=== PATIENT | female | born 1950 | race Caucasian/White ===

== ENCOUNTER 2020-01-24 15:44 | Inpatient (IN) | payer OTHER ==
[2020-01-24 15:54] VITALS: BMI 27.3
[2020-01-24] MEDS ORDERED: ACETAMINOPHEN 1000 MG/100 ML VIAL (NON FORMULARY) IVPB ONE (16:29)
[2020-01-24] MEDS ORDERED: ACETAMINOPHEN INJECTION 100 ML IVPB ONE (18:47)
[2020-01-24 18:58] LABS: MEAN PLT VOLUME 8.8 fl (7.5-11.1)
[2020-01-24 19:03] LABS: HEMATOCRIT 47.4 % (32.4-45.2); HEMOGLOBIN 16.2 GM/dl (10.7-15.3); MCH 31.6 pg (25.7-33.7); MCHC 34.2 g/dl (32.0-36.0); MEAN CELL VOLUME 92.4 fl (80-96); PLATELET COUNT 270 K/MM3 (134-434); RBC 5.13 M/mm3 (3.60-5.2); RDW 12.1 % (11.6-15.6); WHITE BLOOD COUNT 22.6 K/mm3 (4.0-10.8)
[2020-01-24 19:16] LABS: ACTIVATED PTT 31.9 SECONDS (25.2-36.5)
[2020-01-24 19:19] LABS: ALBUMIN 4.3 g/dl (3.4-5.0); BILIRUBIN,TOTAL 0.9 mg/dl (0.2-1); CALCIUM 9.5 mg/dl (8.5-10); CREATININE 1.1 mg/dl (0.55-1.3); POTASSIUM 3.7 mmol/L (3.5-5.1); TOT PROT 7.5 g/dl (6.4-8.2)
[2020-01-24 19:21] LABS: INR 1.14 (0.82-1.09); PROTHROMBIN TIME (PATIENT) 12.7 SEC (10.2-13.0)
[2020-01-24 19:38] LABS: PLATELET ESTIMATE ADEQUATE
[2020-01-24] MEDS: ACETAMINOPHEN 1000 MG/100 ML VIAL (NON FORMULARY) IVPB PRN (23:12)
[2020-01-25] MEDS ORDERED: LACTATED RINGERS SOLUTION 1,000 ML/1,000 ML INFUS.BAG IV SCH (01:00)
[2020-01-25] MEDS: ACETAMINOPHEN 1000 MG/100 ML VIAL (NON FORMULARY) IVPB PRN (05:58)
[2020-01-25 08:09] LABS: ALBUMIN 3.8 g/dl (3.4-5.0); BILIRUBIN,TOTAL 1.3 mg/dl (0.2-1); CALCIUM 9.4 mg/dl (8.5-10); CREATININE 0.9 mg/dl (0.55-1.3); MAGNESIUM 2.2 mg/dL (1.8-2.4); POTASSIUM 3.6 mmol/L (3.5-5.1); TOT PROT 6.9 g/dl (6.4-8.2)
[2020-01-25 08:16] LABS: HEMATOCRIT 43.3 % (32.4-45.2); HEMOGLOBIN 14.9 GM/dl (10.7-15.3); MCH 31.5 pg (25.7-33.7); MCHC 34.4 g/dl (32.0-36.0); MEAN CELL VOLUME 91.5 fl (80-96); MEAN PLT VOLUME 8.8 fl (7.5-11.1); PLATELET COUNT 231 K/MM3 (134-434); RBC 4.73 M/mm3 (3.60-5.2); WHITE BLOOD COUNT 13.8 K/mm3 (4.0-10.8)
[2020-01-25] MEDS ORDERED: VANCOMYCIN 1,000 MG VIAL (RESTRICTED TO ID ONLY) ONE (09:58)
[2020-01-25] MEDS ORDERED: MIDAZOLAM HCL 2 MG/2 ML SINGLE DOSE VIAL ONE ×2 (09:58)
[2020-01-25] MEDS ORDERED: PROPOFOL 20 ML ONE ×2 (10:50→11:51)
[2020-01-25] MEDS ORDERED: ceFAZolin SODIUM 1 GM VIAL IVPB ONE (11:08)
[2020-01-25] MEDS ORDERED: VANCOMYCIN 1,000 MG VIAL (RESTRICTED TO ID ONLY) IVPB ONE (11:20)
[2020-01-25] MEDS ORDERED: LACTATED RINGERS SOLUTION 1,000 ML IV SCH (12:45)
[2020-01-25] MEDS ORDERED: ACETAMINOPHEN 1000 MG/100 ML VIAL (NON FORMULARY) IVPB PRN (13:07)
[2020-01-25] MEDS ORDERED: ONDANSETRON 4 MG/2 ML VIAL IVPUSH PRN (13:42)
[2020-01-25] MEDS: LACTATED RINGERS SOLUTION 1,000 ML IV SCH ×2 (17:05→21:17)
[2020-01-25] MEDS ORDERED: CEFAZOLIN 2 GM/D5W 2 GM/50 ML ML IVPB SCH (20:00)
[2020-01-25] MEDS: CEFAZOLIN 2 GM/D5W 2 GM/50 ML ML IVPB SCH (21:16)
[2020-01-26] MEDS: CEFAZOLIN 2 GM/D5W 2 GM/50 ML ML IVPB SCH (04:24)
[2020-01-26] MEDS ORDERED: ASPIRIN 325 MG TABLET PO SCH (08:00)
[2020-01-26 08:38] LABS: HEMATOCRIT 41.1 % (32.4-45.2); HEMOGLOBIN 13.9 GM/dL (10.7-15.3); MCHC 33.7 g/dl (32.0-36.0); MEAN CELL VOLUME 91.9 fl (80-96); MEAN PLT VOLUME 8.7 fl (7.5-11.1); PLATELET COUNT 200 K/MM3 (134-434); RBC 4.47 M/mm3 (3.60-5.2); RDW 13.1 % (11.6-15.6); WHITE BLOOD COUNT 15.8 K/mm3 (4.0-10.0)
[2020-01-26 08:55] LABS: POTASSIUM 3.6 mmol/L (3.5-5.1)
[2020-01-26 08:57] LABS: CALCIUM 8.6 mg/dL (8.5-10.1)
[2020-01-26 08:58] LABS: BLOOD UREA NITROGEN 10.9 mg/dL (7-18)
[2020-01-26 09:01] LABS: CREATININE 0.9 mg/dL (0.55-1.3)
[2020-01-26] MEDS: ASPIRIN 325 MG TABLET PO SCH (09:37)
[2020-01-26] MEDS: ACETAMINOPHEN 325 MG TABLET (FP) PO PRN (12:49)
[2020-01-26] MEDS ORDERED: traMADol HCL 50 MG TABLET PO PRN (15:41)
[2020-01-27 08:48] LABS: BASO % 0.2 % (0-2.0); EOS % 0.3 % (0-4.5); HEMATOCRIT 40.6 % (32.4-45.2); HEMOGLOBIN 13.7 GM/dL (10.7-15.3); LYMPH % 9.3 % (8-40); MCH 30.7 pg (25.7-33.7); MCHC 33.7 g/dl (32.0-36.0); MEAN CELL VOLUME 91.1 fl (80-96); MEAN PLT VOLUME 8.4 fl (7.5-11.1); MONO % 11.7 % (3.8-10.2); NEUT % 78.5 % (42.8-82.8); PLATELET COUNT 232 K/MM3 (134-434); RBC 4.46 M/mm3 (3.60-5.2); RDW 12.8 % (11.6-15.6); WHITE BLOOD COUNT 17.8 K/mm3 (4.0-10.0)
[2020-01-27] MEDS: ENOXAPARIN NA (PORCINE) 40 MG/0.4 ML DISP.SYRIN SQ SCH (09:03)
[2020-01-27] MEDS: ASPIRIN 325 MG TABLET PO SCH ×2 (09:06→10:11)
[2020-01-27 09:08] LABS: POTASSIUM 3.6 mmol/L (3.5-5.1)
[2020-01-27 09:10] LABS: CALCIUM 8.9 mg/dL (8.5-10.1)
[2020-01-27 09:11] LABS: BLOOD UREA NITROGEN 11.5 mg/dL (7-18)
[2020-01-27 09:14] LABS: CREATININE 0.8 mg/dL (0.55-1.3)
[2020-01-27] MEDS ORDERED: DOCUSATE SODIUM 100 MG CAPSULE (FP) PO ONE (11:50)
[2020-01-27] MEDS ORDERED: BISACODYL 5 MG TABLET.DR (FP) PO ONE (12:15)
[2020-01-28] MEDS: ACETAMINOPHEN 325 MG TABLET (FP) PO PRN (02:02)
[2020-01-28 09:07] LABS: BASO % 0.1 % (0-2.0); EOS % 1.1 % (0-4.5); HEMATOCRIT 37.9 % (32.4-45.2); HEMOGLOBIN 12.8 GM/dL (10.7-15.3); MCH 30.8 pg (25.7-33.7); MCHC 33.9 g/dl (32.0-36.0); MEAN CELL VOLUME 91.1 fl (80-96); MEAN PLT VOLUME 8.5 fl (7.5-11.1); MONO % 11.5 % (3.8-10.2); NEUT % 71.3 % (42.8-82.8); PLATELET COUNT 230 K/MM3 (134-434); RBC 4.16 M/mm3 (3.60-5.2); RDW 12.7 % (11.6-15.6); WHITE BLOOD COUNT 14.3 K/mm3 (4.0-10.0)
[2020-01-28] MEDS: ASPIRIN 325 MG TABLET PO SCH (09:11)
[2020-01-28] MEDS: ENOXAPARIN NA (PORCINE) 40 MG/0.4 ML DISP.SYRIN SQ SCH (09:11)
[2020-01-28 09:40] LABS: POTASSIUM 3.5 mmol/L (3.5-5.1)
[2020-01-28 09:42] LABS: CALCIUM 8.5 mg/dL (8.5-10.1)
[2020-01-28 09:43] LABS: BLOOD UREA NITROGEN 14.3 mg/dL (7-18)
[2020-01-28 09:46] LABS: CREATININE 0.7 mg/dL (0.55-1.3)
[2020-01-28] MEDS ORDERED: cefTRIAXone SODIUM 1 GM VIAL ONE (15:40)
[2020-01-28] MEDS ORDERED: DEXTROSE 5%-WATER - 50 ML IVPB ONE (15:40)
[2020-01-28] MEDS: CEFTRIAXONE 1 GM in DEXTROSE 5%-WATER - 50 ML IVPB SCH (15:42)
[2020-01-29] MEDS ORDERED: DEXTROSE 5%-WATER - 50 ML IVPB ONE (08:57)
[2020-01-29] MEDS ORDERED: cefTRIAXone SODIUM 1 GM VIAL ONE (08:57)
[2020-01-29] MEDS: ASPIRIN 325 MG TABLET PO SCH (09:00)
[2020-01-29] MEDS: ENOXAPARIN NA (PORCINE) 40 MG/0.4 ML DISP.SYRIN SQ SCH (09:00)
[2020-01-29] MEDS: CEFTRIAXONE 1 GM in DEXTROSE 5%-WATER - 50 ML IVPB SCH (09:01)
[2020-01-30] MEDS: ASPIRIN 325 MG TABLET PO SCH (08:43)
[2020-01-30 08:58] LABS: BASO % 0.3 % (0-2.0); EOS % 3.5 % (0-4.5); HEMATOCRIT 36.3 % (32.4-45.2); HEMOGLOBIN 12.2 GM/dL (10.7-15.3); LYMPH % 16.2 % (8-40); MCH 30.8 pg (25.7-33.7); MCHC 33.7 g/dl (32.0-36.0); MEAN CELL VOLUME 91.4 fl (80-96); MEAN PLT VOLUME 8.3 fl (7.5-11.1); MONO % 10.4 % (3.8-10.2); NEUT % 69.6 % (42.8-82.8); PLATELET COUNT 303 K/MM3 (134-434); RBC 3.97 M/mm3 (3.60-5.2); RDW 13.1 % (11.6-15.6); WHITE BLOOD COUNT 11.8 K/mm3 (4.0-10.0)
[2020-01-30 09:15] LABS: POTASSIUM 3.2 mmol/L (3.5-5.1)
[2020-01-30 09:17] LABS: CALCIUM 8.3 mg/dL (8.5-10.1)
[2020-01-30 09:18] LABS: BLOOD UREA NITROGEN 15.8 mg/dL (7-18); MAGNESIUM 2.3 mg/dL (1.8-2.4)
[2020-01-30 09:21] LABS: CREATININE 0.7 mg/dL (0.55-1.3)
[2020-01-30] MEDS ORDERED: DEXTROSE 5%-WATER - 50 ML IVPB ONE (10:11)
[2020-01-30] MEDS ORDERED: cefTRIAXone SODIUM 1 GM VIAL ONE (10:11)
[2020-01-30] MEDS: ENOXAPARIN NA (PORCINE) 40 MG/0.4 ML DISP.SYRIN SQ SCH (10:12)
[2020-01-30] MEDS: CEFTRIAXONE 1 GM in DEXTROSE 5%-WATER - 50 ML IVPB SCH (10:12)
[2020-01-30] MEDS ORDERED: POTASSIUM CHLORIDE TABS 20 MEQ TABLET.ER (FP) PO ONE ×2 (10:30→15:56)
[2020-01-30] MEDS ORDERED: SIMETHICONE 80 MG TAB.CHEW (FP) PO PRN (12:13)
[2020-01-30 14:45] VITALS: BP 136/68; PULSE 87; TEMP 98.1
== END 2020-01-30 21:08 | DRG 522 ==
LOC: FER 15:44 → FM/S 19:40 → UNDODISIN 01-25 09:20 → J6S 01-25 14:58
PROVIDERS: ADMIT Student in an Organized Health Care Education/Training Program; ATTEND Internal Medicine
PROC: 0SRS0JA Replacement of Left Hip Joint, Femoral Surface with Synthetic Substitute, Uncemented, Open Approach (ICD-10-PCS; principal; 2020-01-25 11:45)
DX: S72.002A Fracture of unspecified part of neck of left femur, initial encounter for closed fracture (principal); N39.0 Urinary tract infection, site not specified; W19.XXXA Unspecified fall, initial encounter; Y93.9 Activity, unspecified; Y92.89 Other specified places as the place of occurrence of the external cause; Y99.9 Unspecified external cause status; B96.20 Unspecified Escherichia coli [E. coli] as the cause of diseases classified elsewhere; D72.829 Elevated white blood cell count, unspecified; R11.0 Nausea
CPT/HCPCS: 36415; 71045-TC-FY; 72170-TC-FY; 73090-TC-LT-FY; 73110-TC-LT-FY; 73130-TC-LT-FY; 73552-TC-LT-FY; 80048; 80053; 80061; 81003; 81015; 83036; 83721; 83735; 85025; 85027; 85610; 85730; 86850; 86900; 86901; 87040; 87077; 87086; 87186; 88305-TC; 88311-TC; 93005; 94010; 94760; 97116-GP; 97162-GP; 99285-25; C9803; J0131; U0003